=== PATIENT | female | born 1990 | race Caucasian/White ===

== ENCOUNTER 2022-09-24 19:35 | Inpatient (IN) | payer OTHER ==
[2022-09-24] MEDS ORDERED: AMPICILLIN - 2 GM in SODIUM CHLORIDE 100 ML IVPB ONE (20:34)
[2022-09-24] MEDS ORDERED: ZOLPIDEM TARTRATE 5 MG TABLET PO ONE (20:35)
[2022-09-24] MEDS: ELECTROLYTE-148 SOLN 1,000 ML IV SCH (21:00)
[2022-09-24] MEDS ORDERED: DINOPROSTONE 10 MG VAGINAL SUPPOSITORY VG ONE (21:00)
[2022-09-24 21:07] VITALS: BMI 38.9
[2022-09-24] MEDS ORDERED: FAMOTIDINE 20 MG TABLET PO ONE (21:30)
[2022-09-25] MEDS: ELECTROLYTE-148 SOLN 1,000 ML IV SCH (06:15)
[2022-09-25] MEDS ORDERED: AMPICILLIN SODIUM 2 GM VIAL ONE (07:58)
[2022-09-25] MEDS ORDERED: OXYTOCIN 30 UNITS in 0.9% NS 30 UNIT/500 ML INFUS.BAG IVPB ONE (07:58)
[2022-09-25] MEDS: AMPICILLIN - 1 GM in SODIUM CHLORIDE 100 ML IVPB SCH ×4 (08:00→16:00)
[2022-09-25] MEDS ORDERED: FENTANYL/BUPIVACAINE/NS/PF - PCEA - 50 ML DISP.SYRIN EP ONE (09:43)
[2022-09-25] MEDS: FENTANYL/BUPIVACAINE/NS/PF - PCEA - 50 ML DISP.SYRIN EP SCH ×2 (10:05→13:10)
[2022-09-25] MEDS ORDERED: NALOXONE HCL 0.4 MG/ML VIAL IVPUSH PRN (10:10)
[2022-09-25] MEDS ORDERED: OXYTOCIN 20 UNITS in 0.9% NS 20 UNIT/1,000 ML INFUS.BAG IV ONE (11:36)
[2022-09-25] MEDS ORDERED: AMPICILLIN SODIUM 1 GM VIAL ONE ×2 (11:36→15:42)
[2022-09-25 13:43] LABS: POC NITRAZINE POS
[2022-09-25] MEDS ORDERED: LIDOCAINE HCL 1% PRESERVATIVE FREE - 30ML VIAL ONE (15:56)
[2022-09-25] MEDS ORDERED: OXYTOCIN 30 UNITS in 0.9% NS 30 UNIT/500 ML INFUS.BAG IVPB SCH (17:45)
[2022-09-25] MEDS ORDERED: WITCH HAZEL 50% (TUCKS) 40 PAD/JAR PAD TP PRN (17:52)
[2022-09-25] MEDS ORDERED: BENZOCAINE 28 GM HEMORRHOIDAL OINTMENT TP PRN (17:52)
[2022-09-25] MEDS ORDERED: oxyCODONE HCL 5 MG TABLET PO PRN (17:52)
[2022-09-25] MEDS ORDERED: ACETAMINOPHEN 325 MG TABLET (FP) PO PRN (17:52)
[2022-09-25] MEDS ORDERED: BISACODYL 10 MG SUPP.RECT RC PRN (17:52)
[2022-09-25] MEDS ORDERED: METHYLERGONOVINE MALEATE 0.2 MG/1 ML AMP IM PRN (17:52)
[2022-09-25] MEDS ORDERED: OXYTOCIN 20 UNITS in 0.9% NS 20 UNIT/1,000 ML INFUS.BAG IV SCH (18:00)
[2022-09-25] MEDS: IBUPROFEN 600 MG TABLET (FP) PO PRN (19:11)
[2022-09-25] MEDS: BENZOCAINE 20% 57 GM BOTTLE TP PRN (19:13)
[2022-09-26] MEDS: IBUPROFEN 600 MG TABLET (FP) PO PRN ×3 (01:44→20:03)
[2022-09-26 07:41] LABS: BASO % 0.2 % (0-2.0); EOS % 0.3 % (0-4.5); HEMATOCRIT 28.2 % (32.4-45.2); HEMOGLOBIN 9.6 GM/dL (10.7-15.3); LYMPH % 10.9 % (8-40); MCH 28.8 pg (25.7-33.7); MCHC 34.2 g/dl (32.0-36.0); MEAN CELL VOLUME 84.3 fl (80-96); MEAN PLT VOLUME 8.1 fl (7.5-11.1); MONO % 6.8 % (3.8-10.2); NEUT % 81.8 % (42.8-82.8); PLATELET COUNT 191 10^3/uL (134-434); RBC 3.34 M/mm3 (3.60-5.2); RDW 15.5 % (11.6-15.6); WHITE BLOOD COUNT 12.1 K/mm3 (4.0-10.0)
[2022-09-26] MEDS: ELECTROLYTE-148 SOLN 1,000 ML IV SCH (20:56)
[2022-09-26] MEDS ORDERED: SENNOSIDES/DOCUSATE COMBO (SENNA PLUS) TABLET (UD) PO PRN (22:00)
[2022-09-26] MEDS: FENTANYL/BUPIVACAINE/NS/PF - PCEA - 50 ML DISP.SYRIN EP SCH (23:31)
[2022-09-27 09:14] VITALS: BP 143/89; PULSE 107; RESP 20; TEMP 98.1
[2022-09-27] MEDS: BENZOCAINE 20% 57 GM BOTTLE TP PRN (11:59)
== END 2022-09-27 12:40 | disposition home or self-care (01) | DRG 807 ==
LOC: JLDR 19:35 → J3W 09-25 18:20
PROVIDERS: ADMIT Specialist; ATTEND Specialist
PROC: 3E0P7VZ Introduction of Hormone into Female Reproductive, Via Natural or Artificial Opening (ICD-10-PCS; 2022-09-24)
PROC: 10D07Z6 Extraction of Products of Conception, Vacuum, Via Natural or Artificial Opening (ICD-10-PCS; principal; 2022-09-25)
PROC: 10907ZC Drainage of Amniotic Fluid, Therapeutic from Products of Conception, Via Natural or Artificial Opening (ICD-10-PCS; 2022-09-25)
PROC: 0W8NXZZ Division of Female Perineum, External Approach (ICD-10-PCS; 2022-09-25)
DX: O36.63X0 Maternal care for excessive fetal growth, third trimester, not applicable or unspecified (principal); Z37.0 Single live birth; O66.2 Obstructed labor due to unusually large fetus; O66.0 Obstructed labor due to shoulder dystocia; O99.824 Streptococcus B carrier state complicating childbirth; Z3A.39 39 weeks gestation of pregnancy
CPT/HCPCS: 36415; 59409; 83986-QW; 85025